=== PATIENT | male | born 1970 | race African-American/Black ===

== ENCOUNTER 2020-03-25 18:15 | Emergency (ER) | payer MEDICAID ==
[~2020-03-25] VITALS: Ht 182.9 cm; Wt 93.0 kg
--- NOTE | 2020-03-25 18:20 | NUR ---
PT AAOX4. BIBSELF C/O SI TO "OD ON PILLS", REQ FOR VOL PSYCH ADMIT TO [facility]. PLACED IN BED 4 ON MONITOR AND PULSE OX. PT PLACED IN A GOWN, BELONGINGS IN LOCKER. SITTER AT BEDSIDE. VSS. AWAITING MD FOR EVAL.
--- NOTE | 2020-03-25 21:20 | NUR ---
URINE COLLECTED AND SENT TO LAB.
--- NOTE | 2020-03-25 21:22 | NUR ---
CALLED LAB TO DRAW BLOOD.
[2020-03-25 21:56] LABS: APPEARANCE,URINE CLEAR (CLEAR); BILIRUBIN,URINE NEGATIVE (NEGATIVE); BLOOD, URINE NEGATIVE Ery/uL (NEGATIVE); COLOR,URINE YELLOW (YELLOW); KETONES,URINE NEGATIVE (NEGATIVE); LEUKOCYTE ESTERASE ,URINE NEGATIVE (NEGATIVE); NITRITE, URINE NEGATIVE (NEGATIVE); PROTEIN,URINE NEGATIVE (NEGATIVE); UGLUCOSE >=1000 mg/dL (NEGATIVE); UROBILINOGEN,URINE 0.2 EU/dL (0.2)
[2020-03-25 22:01] LABS: BASOPHILS # (AUTO) 0.1 /CMM (0.0-0.2); BASOPHILS % (AUTO) 0.9 % (0.0-2.0); EOSINOPHILS % (AUTO) 0.7 % (0.0-6.0); HEMATOCRIT 37 % (39-51); HEMOGLOBIN 11.5 g/dL (13.5-17.5); LYMPHOCYTES # (AUTO) 2.6 /CMM (0.8-4.8); LYMPHOCYTES % (AUTO) 31.3 % (20.0-44.0); MEAN CORPUSCULAR HGB CONC 31 g/dl (31.0-36.0); MEAN CORPUSCULAR VOLUME 78 fL (80-96); MONOCYTES # (AUTO) 0.4 /CMM (0.1-1.30); MONOCYTES % (AUTO) 5.4 % (2.0-12.0); NEUTROPHILS # (AUTO) 5.1 /CMM (1.8-8.9); NEUTROPHILS % (AUTO) 61.7 % (43.0-81.0); PLATELET COUNT (AUTO) 122 /CMM (150-450); RED BLOOD CELL COUNT(AUTO) 4.77 MIL/uL (4.5-6.0); WHITE BLOOD COUNT (AUTO) 8.2 K/uL (4.3-11.0)
[2020-03-25 22:09] LABS: CARBON DIOXIDE 20 mmol/L (21-32); CHLORIDE 100 mmol/L (98-107); CREATININE 1.2 mg/dL (0.6-1.3); GLUCOSE 237 mg/dL (74-106); POTASSIUM 4.2 mmol/L (3.5-5.1); SODIUM SERUM 134 mmol/L (136-145); UREA NITROGEN, BLOOD 19 mg/dL (7-18)
[2020-03-25 22:14] LABS: ALANINE AMINOTRANSFERASE 35 U/L (12-78); ALBUMIN 3.5 g/dL (3.4-5.0); ALCOHOL, BLOOD 9 mg/dL (0-0); ALKALINE PHOSPHATASE 179 U/L (46-116); ASPARTATE AMINOTRANSFERASE 20 U/L (15-37); BILIRUBIN,TOTAL 0.1 mg/dL (0.2-1.0); TOTAL PROTEIN, SERUM 7.8 g/dL (6.4-8.2)
[2020-03-25 22:16] LABS: ACETAMINOPHEN < 2 ug/ml (10-30)
[2020-03-25] MEDS ORDERED: IV NS 0.9% 1,000 ML BAG IV ONE (22:30)
--- NOTE | 2020-03-26 00:03 | NUR ---
CLINICALS FA[place]ED TO [facility] [place]
--- NOTE | 2020-03-26 00:41 | NUR ---
SPOKE TO JENNIFER FROM [facility] INTAKE. CONFIRMED FAXED CLINICALS FOR PT.
--- NOTE | 2020-03-26 01:06 | NUR ---
PER LAB COVID TEST IS NEGATIVE.
--- NOTE | 2020-03-26 01:17 | NUR ---
CALLED [facility] INTAKE SPOKE TO CLARKE. VERIFIED RECEIVED PT CLINICALS.
--- NOTE | 2020-03-26 03:16 | NUR ---
SPOKE TO CJ FROM [facility] – [place] NO BEDS AT THIS TIME, PER CJ WILL ENDORSE TO THE NEXT SHIFT.
[2020-03-26] MEDS ORDERED: CHLORDIAZEPOXIDE HCL 25 MG CAPSULE ONE (08:08)
[2020-03-26] MEDS ORDERED: PANTOPRAZOLE 40 MG TABLET.DR PO ONE ×2 (08:09→08:30)
--- NOTE | 2020-03-26 08:11 | NUR ---
PT GIVEN MEDS PO TAKEN . BREAKFAST GIVEN PT CALM RESTING CONT TO MONITOR
[2020-03-26] MEDS ORDERED: CHLORDIAZEPOXIDE HCL 25 MG CAPSULE PO ONE (08:30)
--- NOTE | 2020-03-26 10:06 | NUR ---
[facility] ACCEPTED UNDER [facility]/ [facility]. NUMBER FOR REPORT [phone].
--- NOTE | 2020-03-26 10:10 | NUR ---
REPORT GIVEN TO VESNA YU OF [facility] [place]
--- NOTE | 2020-03-26 10:10 | NUR ---
WILL CALL BACK FOR UPDATED BLOOD SUGAR LEVEL
--- NOTE | 2020-03-26 12:11 | NUR ---
CALLED BACK VESNA FOR PT'S BS OF 167. PT IS OK TO GO
--- NOTE | 2020-03-26 12:45 | NUR ---
CALLED [facility] FOR TRANSPORT TO [facility]. ETA [phone].
--- NOTE | 2020-03-26 15:02 | NUR ---
REPORT GIVEN TO EMS FOR PT TRANSFER TO [facility].
[2020-03-26 15:06] VITALS: BP 123/81
== END 2020-03-26 15:07 ==
LOC: ER 18:22
DX: R45.851 Suicidal ideations (principal); I10 Essential (primary) hypertension; Z91.14 Patient's other noncompliance with medication regimen; Z20.828 Contact with and (suspected) exposure to other viral communicable diseases; E11.65 Type 2 diabetes mellitus with hyperglycemia; D64.9 Anemia, unspecified; E87.1 Hypo-osmolality and hyponatremia; E87.2 Acidosis
CPT/HCPCS: 36415; 80048; 80076; 80299; 80307; 80320; 81001; 82962; 85025; 87426; 96360; 99285; C9803; J7030; 81000-TC; G0480